=== PATIENT | male | born 1960 | race Caucasian/White ===

== ENCOUNTER 2017-02-05 15:35 | Emergency (ER) | payer SELFPAY ==
[2017-02-05] MEDS ORDERED: diphenhydrAMINE HCl 50 MG/ML 1 ML VIAL ONE (16:06)
[2017-02-05] MEDS ORDERED: Metoclopramide HCl 10 MG/2 ML VIAL ONE (16:06)
[2017-02-05] MEDS ORDERED: Sodium Chloride 0.9% 1,000 ML ONE (16:06)
[2017-02-05] MEDS ORDERED: Fentanyl 100 MCG/2 ML VIAL ONE (16:31)
[2017-02-05] MEDS ORDERED: Ondansetron HCl/PF 4 MG/2 ML Vial ONE (16:31)
--- NOTE | 2017-02-05 16:34 | CT ---
CT OF BRAIN PERFORMED WITHOUT CONTRAST ENHANCEMENT: 02/05/17 HISTORY: Fall, hitting head. There is a large right frontotemporal subdural hematoma. There is also some subdural blood that trac ks along the right side of the tentorium. There is approximately 5 mm of shift of midline structures to the left with a moderately effaced right lateral ventricle. No fracture is seen associated with this. No intraparenchymal hemorrhage. IMPRESSION: 1. Large right sided frontal and temporoparietal subdural hematoma. Also some blood in the katherine on of the tentorium. There is 5 mm of shift of midline structures to the left with moderate effaceme nt of the right lateral ventricle. 2. These findings were telephoned to Dr. Lam in the Emergency Room at the time of this dictati on. POS: MICHAEL
[2017-02-05 16:36] LABS: #Basophils 0.1 thou/uL (0.0-0.2); #Eosinphils 0.2 thou/uL (0.0-0.7); #Monocytes 0.9 thou/uL (0.11-0.59); #Neutrophils 7.2 thou/uL (1.40-6.50); %Basophils 1.4 % (0.0-1.0); %Eosinophils 2.4 % (0.0-10.0); %Monocytes 9.1 % (0.0-10.0); %Neutrophils 76.1 % (42.0-75.0); Hemoglobin 15.4 g/dL (14.0-18.0); Mean Corpuscular HGB CONC 34.6 g/dL (32.0-36.0); Mean Corpuscular Hemoglobin 33.1 pg (27.0-31.0); Mean Corpuscular Volume 95.5 fl (80.0-94.0); Mean Platelet Volume 10.1 fL (7.4-10.4); Platelet Count 145 thou/uL (130-400); RBC Distribution Width 10.8 % (11.5-14.5); Red Blood Cell (RBC) Count 4.65 mill/uL (4.70-6.10); White Blood Cell (WBC) Count 9.5 thou/uL (4.8-10.8)
[2017-02-05 17:02] LABS: INR-International Normal Ratio 1.1; PTT 28.7 SEC (22.9-36.1)
[2017-02-05 17:12] LABS: ALT (SGPT) 64 U/L (8-55); AST (SGOT) 67 U/L (5-34); Alcohol 126 mg/dL (Less than 10); Alkaline Phosphatase 95 U/L (40-150); Anion Gap 20 mmol/L (10-20); BUN (Urea Nitrogen) 9 mg/dL (8.4-25.7); Bilirubin, Total 1.1 mg/dL (0.2-1.2); Calc. Creatinine Clearance 0 mL/min (70-130); Calcium 8.8 mg/dL (7.8-10.44); Carbon Dioxide 22 mmol/L (22-29); Chloride 94 mmol/L (98-107); Estimated GFR-MDRD Greater than 90; Globulin 3.4 g/dL (2.4-3.5); Glucose 98 mg/dL (70-105); Potassium 2.5 mmol/L (3.5-5.1); Protein, Total 7.4 g/dL (6.0-8.3); Sodium 133 mmol/L (136-145)
[2017-02-05] MEDS ORDERED: Potassium Chloride 10 MEQ/100 ML PREMIX BAG ONE (17:16)
== END 2017-02-05 17:23 | disposition short-term general hospital (02) ==
LOC: NAV ERS 15:35
DX: S06.5X9A Traumatic subdural hemorrhage with loss of consciousness of unspecified duration, initial encounter (principal); K21.9 Gastro-esophageal reflux disease without esophagitis; I10 Essential (primary) hypertension; F41.9 Anxiety disorder, unspecified; Z79.899 Other long term (current) drug therapy; W22.8XXA Striking against or struck by other objects, initial encounter
CPT/HCPCS: 70450; 80053; 80307; 85025; 85610; 85730; 96361; 96374; 96375; J1200; J2405; J2765; J3010; J3480; J7050

== ENCOUNTER 2017-04-25 13:56 | Emergency (ER) | payer OTHER ==
[2017-04-25 14:24] LABS: #Basophils 0.1 thou/uL (0.0-0.2); #Eosinphils 0.3 thou/uL (0.0-0.7); #Lymphocytes 2.1 thou/uL (1.20-3.40); #Monocytes 0.6 thou/uL (0.11-0.59); #Neutrophils 2.3 thou/uL (1.40-6.50); %Basophils 1.6 % (0.0-1.0); %Lymphocytes 37.9 % (21.0-51.0); %Monocytes 11.4 % (0.0-10.0); %Neutrophils 43.1 % (42.0-75.0); Hemoglobin 13.7 g/dL (14.0-18.0); Mean Corpuscular HGB CONC 33.2 g/dL (32.0-36.0); Mean Corpuscular Volume 93.6 fl (80.0-94.0); Mean Platelet Volume 10.4 fL (7.4-10.4); Platelet Count 177 thou/uL (130-400); RBC Distribution Width 11.6 % (11.5-14.5); Red Blood Cell (RBC) Count 4.43 mill/uL (4.70-6.10); White Blood Cell (WBC) Count 5.4 thou/uL (4.8-10.8)
[2017-04-25] MEDS ORDERED: Fentanyl 100 MCG/2 ML VIAL ONE (14:30)
[2017-04-25] MEDS ORDERED: Ondansetron HCl/PF 4 MG/2 ML Vial ONE (14:30)
[2017-04-25 14:35] LABS: INR-International Normal Ratio 1.1
[2017-04-25 14:38] LABS: ALT (SGPT) 35 U/L (8-55); AST (SGOT) 32 U/L (5-34); Albumin 4.1 g/dL (3.5-5.0); Alkaline Phosphatase 118 U/L (40-150); Anion Gap 12 mmol/L (10-20); BUN (Urea Nitrogen) 6 mg/dL (8.4-25.7); Bilirubin, Total 0.9 mg/dL (0.2-1.2); Calc. Creatinine Clearance 0 mL/min (70-130); Calcium 9.8 mg/dL (7.8-10.44); Carbon Dioxide 27 mmol/L (22-29); Chloride 106 mmol/L (98-107); Estimated GFR-MDRD 85; Globulin 3.2 g/dL (2.4-3.5); Glucose 103 mg/dL (70-105); Potassium 3.4 mmol/L (3.5-5.1); Protein, Total 7.3 g/dL (6.0-8.3); Sodium 142 mmol/L (136-145)
[2017-04-25 14:59] LABS: D-Dimer Test Less than 0.27 *mcg/mL (0.27-0.43)
--- NOTE | 2017-04-25 15:09 | CT ---
CT HEAD NONCONTRAST: HISTORY: Headache. Prior intracranial hemorrhage with operative decompression. COMPARISON: 02/19/17 and 03/20/17. FINDINGS: Right frontotemporal craniotomy defect is again demonstrated with a small residual subdural hematoma . It is slightly smaller than the 03/20/17 exam and significantly smaller than the 02/19/17 exam. No new areas of hemorrhage are apparent. There is minimal associated mass effect. Ventricles appear n ormal in size, shape, and position. Cystic lesion at the tortucula herophili is stable. IMPRESSION: Stable CT appearance of the small residual right subdural hematoma and postoperative changes. Findings were called to Dr. Kramer in the [place] emergency department at 1427 hours. CODE CR POS: MICHAEL
== END 2017-04-25 15:12 | disposition short-term general hospital (02) ==
LOC: NAV ERS 13:56
DX: R51 Headache (principal); K21.9 Gastro-esophageal reflux disease without esophagitis; I10 Essential (primary) hypertension; F41.9 Anxiety disorder, unspecified; Z87.891 Personal history of nicotine dependence; Z86.73 Personal history of transient ischemic attack (TIA), and cerebral infarction without residual deficits; Z79.899 Other long term (current) drug therapy
CPT/HCPCS: 36416; 70450; 80053; 85025; 85379; 85610; 85730; 96374; 96375; J2270; J2405; J3010